=== PATIENT | female | born 1955 | race Two or more races ===

== ENCOUNTER 2018-10-24 10:35 | Emergency (ER) | payer SELFPAY ==
--- NOTE | 2018-10-24 13:00 | EDM.PDOC ---
ED HPI GENERAL MEDICAL PROBLEM - General Chief Complaint: Syncope Stated Complaint: [facility] Time Seen by Provider: 10/24/18 10:42 Source of Information: Reports: Patient, EMS, Other (co-worker) History Limitations: Reports: Language Barrier - History of Present Illness INITIAL COMMENTS - FREE TEXT/NARRATIVE: The patient presents by [facility] for syncope. 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 She did not hit her head. She does have a history of HTN and she is on 2 medications. She has no headache, chest pain, shortness of breath, abdominal pain, nausea or vomiting. She has some dysuria. Onset: Sudden Duration: Minutes: Improves with: Reports: None Worsens with: Reports: None Associated Symptoms: Reports: No Other Symptoms - Related Data Allergies Allergy/AdvReac Type Severity Reaction Status Date / Time aminophylline Allergy Cannot Verified 10/24/18 12:38 Remember amoxicillin Allergy Rash Verified 10/24/18 10:43 Penicillins Allergy Rash Verified 10/24/18 10:43 Home Meds: Home Meds Captopril [Capoten] 25 mg PO BID 10/24/18 [History] hydroCHLOROthiazide [Hydrochlorothiazide] 25 mg PO DAILY 10/24/18 [History] Past Medical History HEENT History: Reports: Impaired Vision Other HEENT History: utilizes reading glasses Cardiovascular History: Reports: Hypertension Gastrointestinal History: Reports: Cholelithiasis Genitourinary History: Reports: UTI, Recurrent 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: Musculoskeletal History: Reports: Fracture Endocrine/Metabolic History: Reports: Diabetes, Gestational - Infectious Disease History Infectious Disease History: Reports: Chicken Pox, Measles - Past Surgical History HEENT Surgical History: Reports: Tonsillectomy GI Surgical History: Reports: Cholecystectomy Social & Family History - Tobacco Use Smoking Status *Q: Never Smoker Second Hand Smoke Exposure: No - Caffeine Use Caffeine Use: Reports: Coffee - Recreational Drug Use Recreational Drug Use: No ED ROS GENERAL - Review of Systems Review Of Systems: See Below Constitutional: Reports: No Symptoms HEENT: Reports: No Symptoms Respiratory: Reports: No Symptoms Cardiovascular: Reports: No Symptoms Endocrine: Reports: No Symptoms GI/Abdominal: Reports: No Symptoms : Reports: No Symptoms Musculoskeletal: Reports: No Symptoms Skin: Reports: No Symptoms - Physical Exam Exam: See Below Exam Limited By: No Limitations General Appearance: Alert, No Apparent Distress Ears: Normal External Exam Nose: Normal Inspection Head Exam: Atraumatic, Normocephalic Neck: Normal Inspection, Supple, Non-Tender Respiratory/Chest: No Respiratory Distress, Lungs Clear, Normal Breath Sounds Cardiovascular: Regular Rate, Rhythm, No Edema, No Murmur GI/Abdominal: Soft, Non-Tender, No Organomegaly, No Mass Neuro Exam (Abbreviated): Alert, Oriented, No Motor/Sensory Deficits EKG INTERPRETATION EKG Date: 10/24/18 Time: 11:00 Rhythm: NSR Rate (Beats/Min): 81 [place]: Normal P-Wave: Present QRS: Normal ST-T: Normal QT: Normal Course - Vital Signs Last Recorded V/S: Last Vital Signs Temp 97.5 F 10/24/18 10:35 Pulse 90 10/24/18 10:35 Resp 18 10/24/18 10:35 BP 147/79 H 10/24/18 10:35 Pulse Ox 92 L 10/24/18 10:35 - Orders/Labs/Meds Orders: Active Orders 24 hr Category Date Time Status Cardiac Monitoring [RC] . DIRECTED Care 10/24/18 10:50 Active EKG Documentation Completion [RC] STAT Care 10/24/18 10:50 Active UA W/MICROSCOPIC [URIN] Stat Lab 10/24/18 13:25 Results Labs: Laboratory Tests 10/24/18 10/24/18 10/24/18 Range/Units 11:15 11:15 13:25 WBC 6.89 (3.98-10.04) K/mm3 RBC 5.47 H (3.98-5.22) M/mm3 Hgb 15.8 H (11.2-15.7) gm/L Hct 46.6 H (34.1-44.9) % MCV 85.2 (79.4-94.8) fl MCH 28.9 (25.6-32.2) pg MCHC 33.9 (32.2-35.5) g/dl RDW Std Deviation 40.7 (36.4-46.3) fL Plt Count 303 (182-369) K/mm3 MPV 9.7 (9.4-12.3) fl Neut % (Auto) 52.3 (34.0-71.1) % Lymph % (Auto) 36.9 (19.3-51.7) % [place] % (Auto) 8.7 (4.7-12.5) % Eos % (Auto) 1.2 (0.7-5.8) Baso % (Auto) 0.9 (0.1-1.2) % Neut # (Auto) 3.61 (1.56-6.13) K/mm3 Lymph # (Auto) 2.54 (1.18-3.74) K/mm3 [place] # (Auto) 0.60 H (0.24-0.36) K/mm3 Eos # (Auto) 0.08 (0.04-0.36) K/mm3 Baso # (Auto) 0.06 (0.01-0.08) K/mm3 Sodium 140 (136-145) mEq/L Potassium 4.1 (3.5-5.1) mEq/L Chloride 102 (98-107) mEq/L Carbon Dioxide 29 (21-32) mEq/L Anion Gap 13.1 (5-15) BUN 20 H (7-18) mg/dL Creatinine 0.8 (0.55-1.02) mg/dL Est Cr Clr Drug Dosing 60.29 mL/min Estimated GFR (MDRD) > 60 (>60) mL/min BUN/Creatinine Ratio 25.0 H (14-18) Glucose 113 (80-115) mg/dL Calcium 9.6 (8.5-10.1) mg/dL Magnesium 2.2 (1.8-2.4) mg/dl Total Bilirubin 0.4 (0.2-1.0) mg/dL AST 20 (15-37) U/L ALT 38 (14-59) U/L Alkaline Phosphatase 90 (46-116) U/L Troponin I < 0.017 (0.00-0.056) ng/mL Total Protein 8.1 (6.4-8.2) g/dl Albumin 3.9 (3.4-5.0) g/dl Globulin 4.2 gm/dL Albumin/Globulin Ratio 0.9 L (1-2) Urine Color Light yellow (Yellow) Urine Appearance Clear (Clear) Urine pH 6.5 (5.0-8.0) Ur Specific [place] 1.020 (1.005-1.030) Urine Protein Negative (Negative) Urine Glucose (UA) Negative (Negative) Urine Ketones Negative (Negative) Urine Occult Blood Negative (Negative) Urine Nitrite Negative (Negative) Urine Bilirubin Negative (Negative) Urine Urobilinogen 0.2 (0.2-1.0) Ur Leukocyte Esterase Negative (Negative) - Re-Assessments/Exams Free Text/Narrative Re-Assessment/Exam: 10/24/18 13:32 I ordered an IV but she did not want it. I also ordered an EKG and labs. Her EKG shows a NSR with no acute changes. Her CBC and CMP look good. Her troponin is negative. I will have her take 1/2 of her HCTZ and have her follow up with Amairani Kennedy. 10/24/18 13:43 Her UA looks good. Departure - Departure Time of Disposition: 13:00 Disposition: Home, Self-Care 01 Condition: Good Clinical Impression: Syncope Qualifiers: Syncope type: unspecified Qualified Code(s): R55 - Syncope and collapse - Discharge Information *PRESCRIPTION DRUG MONITORING PROGRAM REVIEWED*: No *COPY OF PRESCRIPTION DRUG MONITORING REPORT IN PATIENT BETTYE: No Referrals: PCP,Unknown [Primary Care Provider] - Deepa Kennedy PA-C [Physician Air Sampler] - Forms: ED Department Discharge Additional Instructions: Take your hydrochlorothiazide 1/2 pill daily. Drink plenty of fluids. Please return if you are worse. Follow up with Amairani Kennedy in our clinic on the at 9:30am. Please return if you are worse. - My Orders Last 24 Hours: My Active Orders 10/24/18 10:50 Cardiac Monitoring [RC] . DIRECTED EKG Documentation Completion [RC] STAT 10/24/18 13:25 UA W/MICROSCOPIC [URIN] Stat - Assessment/Plan Last 24 Hours: My Active Orders 10/24/18 10:50 Cardiac Monitoring [RC] . DIRECTED EKG Documentation Completion [RC] STAT 10/24/18 13:25 UA W/MICROSCOPIC [URIN] Stat
[2018-10-24 15:01] VITALS: BP 132/83
== END 2018-10-24 14:50 | disposition home or self-care (01) ==
LOC: JD.ED 10:35
DX: R55 Syncope and collapse (principal); I10 Essential (primary) hypertension; Z88.0 Allergy status to penicillin; Z88.1 Allergy status to other antibiotic agents; Z88.8 Allergy status to other drugs, medicaments and biological substances; Z79.899 Other long term (current) drug therapy
CPT/HCPCS: 36415; 80053; 81001; 83735; 84484; 85025; 93005; 99284-25

== ENCOUNTER 2019-09-12 09:12 | Emergency (ER) | payer SELFPAY ==
[2019-09-12 09:34] VITALS: BP 143/77; PULSE 84
--- NOTE | 2019-09-12 10:06 | EDM.PDOC ---
ED HPI GENERAL MEDICAL PROBLEM - General Chief Complaint: General Stated Complaint: HIGH BP Time Seen by Provider: 09/12/19 09:26 Source of Information: Reports: Patient History Limitations: Reports: No Limitations - History of Present Illness INITIAL COMMENTS - FREE TEXT/NARRATIVE: The patient presents for a refill on her blood pressure meds. She has no symptoms. She does not speak Macedonian so I used our supply clerk. Onset: Gradual Duration: Day(s): Improves with: Reports: None Worsens with: Reports: None Associated Symptoms: Reports: No Other Symptoms - Related Data Allergies Allergy/AdvReac Type Severity Reaction Status Date / Time Penicillins Allergy Severe Rash Verified 09/12/19 09:34 aminophylline Allergy Cannot Verified 10/24/18 12:38 Remember amoxicillin Allergy Rash Verified 10/24/18 10:43 Home Meds: Home Meds captopriL [Capoten] 25 mg PO BID 10/24/18 [History] hydroCHLOROthiazide [Hydrochlorothiazide] 25 mg PO DAILY 10/24/18 [History] captopriL [Capoten] 25 mg PO BID #60 tab 09/12/19 [Rx] hydroCHLOROthiazide [Hydrochlorothiazide] 25 mg PO DAILY #30 tab 09/12/19 [Rx] Past Medical History HEENT History: Reports: Impaired Vision Other HEENT History: utilizes reading glasses Cardiovascular History: Reports: Hypertension Gastrointestinal History: Reports: Cholelithiasis Genitourinary History: Reports: UTI, Recurrent 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: Musculoskeletal History: Reports: Fracture Endocrine/Metabolic History: Reports: Diabetes, Gestational - Infectious Disease History Infectious Disease History: Reports: Chicken Pox, Measles - Past Surgical History HEENT Surgical History: Reports: Tonsillectomy GI Surgical History: Reports: Cholecystectomy Social & Family History - Caffeine Use Caffeine Use: Reports: Coffee ED ROS GENERAL - Review of Systems Review Of Systems: See Below Constitutional: Reports: No Symptoms HEENT: Reports: No Symptoms Respiratory: Reports: No Symptoms Cardiovascular: Reports: No Symptoms Endocrine: Reports: No Symptoms GI/Abdominal: Reports: No Symptoms : Reports: No Symptoms Musculoskeletal: Reports: No Symptoms ED EXAM, GENERAL - Physical Exam Exam: See Below Exam Limited By: No Limitations General Appearance: Alert, No Apparent Distress Ears: Normal External Exam Nose: Normal Inspection Head: Atraumatic, Normocephalic Neck: Normal Inspection Respiratory/Chest: No Respiratory Distress, Lungs Clear, Normal Breath Sounds Cardiovascular: Regular Rate, Rhythm, No Edema, No Murmur GI/Abdominal: Soft, Non-Tender, No Organomegaly, No Mass Extremities: Normal Inspection Course - Vital Signs Last Recorded V/S: Last Vital Signs Temp 98.2 F 09/12/19 09:22 Pulse 84 09/12/19 09:22 Resp 16 09/12/19 09:22 BP 143/77 H 09/12/19 09:22 Pulse Ox 98 09/12/19 09:22 - Re-Assessments/Exams Free Text/Narrative Re-Assessment/Exam: 09/12/19 10:03 The patient does not have money so I will have Daysi with social work come help her. Departure - Departure Time of Disposition: 10:05 Disposition: Home, Self-Care 01 Condition: Good Clinical Impression: Hypertension Qualifiers: Hypertension type: essential hypertension Qualified Code(s): I10 - Essential (primary) hypertension - Discharge Information *PRESCRIPTION DRUG MONITORING PROGRAM REVIEWED*: Not Applicable *COPY OF PRESCRIPTION DRUG MONITORING REPORT IN PATIENT BETTYE: Not Applicable Prescriptions: captopriL [Capoten] 25 mg PO BID #60 tab hydroCHLOROthiazide [Hydrochlorothiazide] 25 mg PO DAILY #30 tab Referrals: PCP,None [Primary Care Provider] - Rina Hernandez, PARA OPERATOR [Nurse Practitioner] - 1 Week Additional Instructions: Take the medication as prescribed. Follow up with Rina Hernandez in our clinic to establish yourself with someone. Please return if you are worse. Sepsis Event Note (ED) - Evaluation Sepsis Screening Result: No Definite Risk - Focused Exam Vital Signs: Vital Signs Temp Pulse Resp BP Pulse Ox 09/12/19 09:22 98.2 F 84 16 143/77 H 98
== END 2019-09-12 10:38 | disposition home or self-care (01) ==
LOC: JD.ED 09:12
DX: I10 Essential (primary) hypertension (principal); Z88.0 Allergy status to penicillin; Z88.8 Allergy status to other drugs, medicaments and biological substances; Z79.899 Other long term (current) drug therapy; Z88.1 Allergy status to other antibiotic agents
CPT/HCPCS: 99281; 99283

== ENCOUNTER 2020-11-09 11:16 | Emergency (ER) | payer MEDICAID, OTHER ==
[2020-11-09 11:42] VITALS: BP 111/60; PULSE 76
[2020-11-09] MEDS ORDERED: Dexamethasone 4 MG Tab PO ONE (12:00)
--- NOTE | 2020-11-09 14:15 | EDM.PDOC ---
ED HPI GENERAL MEDICAL PROBLEM - General Chief Complaint: Respiratory Problem Stated Complaint: COVID + O2 IS 85 Time Seen by Provider: 11/09/20 11:42 Source of Information: Reports: Patient, Family History Limitations: Reports: Language Barrier (Patient's son is at the bedside translating as patient is Macedonian-speaking only.), Other (ED vital signs reveal a temp of 97.0, pulse of 76, respiratory rate of 16, blood pressure 111/60, pulse ox 95% on room air) - History of Present Illness INITIAL COMMENTS - FREE TEXT/NARRATIVE: 65-year-old female presents the emergency department with complaints of worsening Covid symptoms. She states that on Tuesday, November 05 she began feeling ill. Symptoms started with headache, body aches and fatigue. She has had some diarrhea however no nausea or vomiting. She has decreased appetite and loss of sense of taste and smell. She denies cough but has had some mild shortness of breath. She states on Tuesday she went to [place] walk[facility]in [facility] and tested positive for Covid. She does carry a history of prediabetes and hypertension. Her primary care provider is Suzanna Mcfarland. She states that today she was checking her pulse oximeter at home when her O2 saturations were at 85% and called her son to bring her in. - Related Data Allergies Allergy/AdvReac Type Severity Reaction Status Date / Time Penicillins Allergy Severe Rash Verified 11/09/20 11:42 aminophylline Allergy Cannot Verified 11/09/20 11:42 Remember amoxicillin Allergy Rash Verified 11/09/20 11:42 Home Meds: Home Meds captopriL [Capoten] 25 mg PO BID 10/24/18 [History] dexAMETHasone [Dexamethasone] 6 mg PO DAILY #14 tablet 11/09/20 [Rx] hydroCHLOROthiazide [Hydrochlorothiazide] 100 mg PO DAILY 11/09/20 [History] Past Medical History HEENT History: Reports: Impaired Vision Other HEENT History: utilizes reading glasses Cardiovascular History: Reports: Hypertension Gastrointestinal History: Reports: Cholelithiasis Genitourinary History: Reports: UTI, Recurrent 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: Musculoskeletal History: Reports: Fracture Endocrine/Metabolic History: Reports: Diabetes, Gestational - Infectious Disease History Infectious Disease History: Reports: Chicken Pox, Measles, Novel Coronavirus - Past Surgical History HEENT Surgical History: Reports: Tonsillectomy GI Surgical History: Reports: Cholecystectomy Social & Family History - Tobacco Use Tobacco Use Status *Q: Never Tobacco User Second Hand Smoke Exposure: No - Caffeine Use Caffeine Use: Reports: None - Recreational Drug Use Recreational Drug Use: No ED ROS GENERAL - Review of Systems Review Of Systems: Comprehensive ROS is negative, except as noted in HPI. ED EXAM, GENERAL - Physical Exam Exam: See Below Exam Limited By: No Limitations General Appearance: Alert, WD/WN, No Apparent Distress Ears: Normal External Exam, Hearing Grossly Normal Nose: Normal Inspection Throat/Mouth: Normal Inspection, Normal Lips, Normal Voice, No Airway Compromise Head: Atraumatic Neck: Normal Inspection, Supple Respiratory/Chest: No Respiratory Distress, Lungs Clear, Normal Breath Sounds, No Accessory Muscle Use, Chest Non-Tender Cardiovascular: Normal Peripheral Pulses, Regular Rate, Rhythm, No Edema, No Murmur Peripheral Pulses: 2+: Radial (L), Radial (R) GI/Abdominal: Normal Bowel Sounds, Soft, Non-Tender, No Distention (Female) Exam: Deferred Rectal (Female) Exam: Deferred Back Exam: Normal Inspection Extremities: Normal Inspection Neurological: Alert, Oriented, Normal Cognition Psychiatric: Normal Affect, Normal Mood Skin Exam: Warm, Dry, Intact, Normal Color, No Rash Lymphatic: No Adenopathy Course - Vital Signs Text/Narrative:: As stated above, patient presents with worsening Covid symptoms. The son is in the room translating he states she is quite anxious and he has tried to tell her to check her oxygen levels at home while she is resting however she has become quite fixated on this. Exam is essentially unremarkable. Lung sounds are clear to all vael. Patient does not have any dyspnea noted. Will obtain labs to include a CBC, CMP, CRP and a D-dimer. We will also obtain a portable chest x- ray. We will also just start the patient on dexamethasone 6 mg p.o. We will have respiratory therapy instruct the patient on the use of incentive spirometer and flutter valve. Last Recorded V/S: Last Vital Signs Temp 97 F 11/09/20 11:37 Pulse 76 11/09/20 11:37 Resp 16 11/09/20 11:37 BP 111/60 11/09/20 11:37 Pulse Ox 95 11/09/20 11:37 - Orders/Labs/Meds Orders: Active Orders 24 hr Category Date Time Status RT Incentive Spirometry [RC] ASDIRECTED Care 11/09/20 14:04 Active Chest 1V Frontal [CR] Stat Exams 11/09/20 12:00 Taken RT Flutter Valve Therapy [RT Acapella] [RESPCARE] Stat Oth 11/09/20 14:04 Active Labs: Laboratory Tests 11/09/20 11/09/20 11/09/20 Range/Units 12:25 12:25 12:25 WBC 3.41 L (3.98-10.04) K/mm3 RBC 4.78 (3.98-5.22) M/mm3 Hgb 13.8 D (11.2-15.7) gm/dl Hct 41.6 (34.1-44.9) % MCV 87.0 (79.4-94.8) fl MCH 28.9 (25.6-32.2) pg MCHC 33.2 (32.2-35.5) g/dl RDW Std Deviation 42.0 (36.4-46.3) fL Plt Count 153 L D (182-369) K/mm3 MPV 10.0 (9.4-12.3) fl Neut % (Auto) 56.9 (34.0-71.1) % Lymph % (Auto) 29.6 (19.3-51.7) % [place] % (Auto) 13.2 H (4.7-12.5) % Eos % (Auto) 0 L (0.7-5.8) Baso % (Auto) 0.3 (0.1-1.2) % Neut # (Auto) 1.94 (1.56-6.13) K/mm3 Lymph # (Auto) 1.01 L (1.18-3.74) K/mm3 [place] # (Auto) 0.45 H (0.24-0.36) K/mm3 Eos # (Auto) 0.00 L (0.04-0.36) K/mm3 Baso # (Auto) 0.01 (0.01-0.08) K/mm3 D-Dimer, Quantitative 0.35 (0.19-0.50) mg/L Sodium 134 L (136-145) mEq/L Potassium 3.7 (3.5-5.1) mEq/L Chloride 101 (98-107) mEq/L Carbon Dioxide 25 (21-32) mEq/L Anion Gap 11.7 (5-15) BUN 18 (7-18) mg/dL Creatinine 0.9 (0.55-1.02) mg/dL Est Cr Clr Drug Dosing 52.24 mL/min Estimated GFR (MDRD) > 60 (>60) mL/min BUN/Creatinine Ratio 20.0 H (14-18) Glucose 128 H (70-99) mg/dL Calcium 8.2 L (8.5-10.1) mg/dL Magnesium 2.1 (1.8-2.4) mg/dL Total Bilirubin 0.3 (0.2-1.0) mg/dL AST 23 (15-37) U/L ALT 30 (14-59) U/L Alkaline Phosphatase 66 (46-116) U/L C-Reactive Protein 1.2 H* (<1.0) mg/dL Total Protein 7.1 (6.4-8.2) g/dl Albumin 3.2 L (3.4-5.0) g/dl Globulin 3.9 gm/dL Albumin/Globulin Ratio 0.8 L (1-2) Meds: Medications Discontinued Medications Generic Name Dose Route Start Last Admin Trade Name Freq PRN Reason Stop Dose Admin Dexamethasone 6 mg 11/09/20 12:00 11/09/20 12:08 Dexamethasone 4 Mg Tab PO 11/09/20 12:01 6 mg ONETIME ONE Administration - Re-Assessments/Exams Free Text/Narrative Re-Assessment/Exam: 11/09/20 14:40 Hematology reveals a WBC of 3.41, hemoglobin 13.8, hematocrit 41.6, platelet count 153 D-dimer 0.35 Chemistry reveals a sodium of 134, potassium 3.7, carbon dioxide 25, anion gap 11.7, BUN 18, creatinine 0.9, glucose 128, calcium 8.2, C-reactive protein 1.2 Portable chest x-ray reviewed by myself and Dr. Champion. Patient does have scattered areas of infiltrate noted to bilateral lungs consistent with Covid pneumonia. Departure - Departure Time of Disposition: 14:43 Disposition: Home, Self-Care 01 Condition: Good Clinical Impression: COVID-19 - Discharge Information Prescriptions: dexAMETHasone [Dexamethasone] 6 mg PO DAILY #14 tablet Referrals: PCP,None [Primary Care Provider] - Forms: ED Department Discharge Additional Instructions: Vaishnavi was seen in the emergency department today with worsening Covid symptoms. She was evaluated in the ER and her oxygen levels were adequate. Chest x-ray was completed which does show some scattered areas of pneumonia consistent with Covid. Lab studies were completed which were essentially unremarkable. While in the emergency department she received an albuterol inhaler as well as instruction on how to use incentive spirometry and flutter valve. She will need to use the incentive spirometer and flutter valve every 1 hour while awake to assist with lung expansion. She may use the albuterol inhaler every 2-4 hours while awake to assist with shortness of breath. Side effect of this medication is heart palpitations if she is consistently using it every 2 hours. She received a steroid called dexamethasone while in the emergency department. I have sent a prescription to your pharmacy for the dexamethasone. This needs to be taken daily for the next 9 days. She will need to continue quarantining for approximately 12 days. And I strongly urged her to receive her Covid vaccination 5 weeks from now. Should her condition worsen or change, do not hesitate returning to the emergency department. Sepsis Event Note (ED) - Evaluation Sepsis Screening Result: No Definite Risk - Focused Exam Vital Signs: Vital Signs Temp Pulse Resp BP Pulse Ox 11/09/20 11:37 97 F 76 16 111/60 95 - My Orders Last 24 Hours: My Active Orders 11/09/20 12:00 Chest 1V Frontal [CR] Stat 11/09/20 14:04 RT Incentive Spirometry [RC] ASDIRECTED RT Flutter Valve Therapy [RT Acapella] [RESPCARE] Stat - Assessment/Plan Last 24 Hours: My Active Orders 11/09/20 12:00 Chest 1V Frontal [CR] Stat 11/09/20 14:04 RT Incentive Spirometry [RC] ASDIRECTED RT Flutter Valve Therapy [RT Acapella] [RESPCARE] Stat
[2020-11-09] MEDS ORDERED: Albuterol 6.7 GM Inhaler INH ONE ×2 (14:40→14:41)
--- NOTE | 2020-11-09 16:05 | CR ---
Chest: Frontal view of the chest was obtained. Comparison: No prior chest imaging is available. Patchy areas of increased density are seen within the perihilar regions on both sides of the chest. Heart size and mediastinum are normal. Bony structures are unremarkable for the patient's age. Impression: 1. Increased perihilar interstitial change most likely representing mild diffuse COVID pneumonia. Diagnostic code #3
== END 2020-11-09 15:05 | disposition home or self-care (01) ==
LOC: JD.ED 11:16
DX: U07.1 COVID-19 (principal); I10 Essential (primary) hypertension; Z88.0 Allergy status to penicillin; Z88.1 Allergy status to other antibiotic agents; Z88.8 Allergy status to other drugs, medicaments and biological substances; Z79.899 Other long term (current) drug therapy
CPT/HCPCS: 36415; 71045; 80053; 83735; 85025; 85379; 86140; 94640; 99284; A9270; J8540; 99283